=== PATIENT | male | born 1980 | race Caucasian/White ===

== ENCOUNTER 2016-05-06 18:19 | Emergency (ER) | payer MEDICAID, OTHER ==
[~2016-05-06] VITALS: Ht 185.4 cm; Wt 69.5 kg
[~2016-05-06 18:19] MED LIST: AMI25 PO; BENZ1LOZ52 MM; CEPH-443 PO; CYCL-319 PO; HYDR-3498 PO; HYDR-762 PO; IBUP-1542 PO; IBUP400T22 PO; NORC 5-325 PO; ORPH100T PO; PHEN177S43 MT
[2016-05-06 18:44] VITALS: Ht 185.4 cm; Wt 69.5 kg
[2016-05-06] MEDS ORDERED: CLINDAMYCIN 600 MG/D5W (PMX) 50 ML IVPB SCH (21:00)
[2016-05-06] MEDS ORDERED: CLINDAMYCIN 300 MG INJ IV ONE (21:00)
[2016-05-06] MEDS ORDERED: SOD CHLORIDE 0.9% 1,000 ML IV ONE (21:00)
[2016-05-06] MEDS ORDERED: morphine 10 MG INJ IV ONE (21:00)
[2016-05-06] MEDS ORDERED: ONDANSETRON 4 MG INJ IV STA (21:07)
[2016-05-06 21:18] LABS: ADD SCAN DIFF NO
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
[2016-05-06 21:23] LABS: BASOPHILS % 0.2 % (0.0-2.0); EOSINOPHILS # 0.2 10^3/ul (0.0-0.5); EOSINOPHILS % 2.3 % (0.0-7.0); HEMATOCRIT 37.9 % (42.0-52.0); HEMOGLOBIN 12.4 g/dl (14.0-18.0); LYMPHOCYTES # 1.4 10^3/ul (0.8-2.9); LYMPHOCYTES % 14.6 % (15.0-51.0); MEAN CORPUSCULAR HEMOGLOBIN 27.9 pg (29.0-33.0); MEAN CORPUSCULAR HGB CONC 32.7 g/dl (32.0-37.0); MEAN CORPUSCULAR VOLUME 85.4 fl (82.0-101.0); MONOCYTE # 1.1 10^3/ul (0.3-0.9); MONOCYTES % 11.2 % (0.0-11.0); NEUTROPHIL # 6.9 10^3/ul (1.6-7.5); NEUTROPHILS % 71.5 % (39.0-77.0); PLATELET COUNT 197 10^3/UL (140-415); RED BLOOD COUNT 4.44 10^6/ul (4.70-6.10); RED CELL DISTRIBUTION WIDTH 13.5 % (11.5-14.5); WHITE BLOOD COUNT 9.6 10^3/ul (4.8-10.8)
[2016-05-06 21:33] LABS: POTASSIUM 3.9 mmol/L (3.5-5.1)
[2016-05-06 21:35] LABS: CREATININE 0.72 mg/dl (0.61-1.24)
[2016-05-06 21:36] LABS: ALBUMIN/GLOBULIN RATIO 1.17; BILIRUBIN,INDIRECT 0.5 mg/dl (0-1.1); BILIRUBIN,TOTAL 0.5 mg/dl (0.2-1.3); CALCIUM 8.9 mg/dl (8.4-10.2); TOTAL PROTEIN 7.4 g/dl (6.1-8.1)
[2016-05-06] MEDS ORDERED: morphine 2 MG INJ IV ONE (22:30)
[2016-05-06] MEDS ORDERED: IOHEXOL 300MG/ML 150 ML BTL ONE (22:34)
[2016-05-06] MEDS ORDERED: SOD CHLORIDE 0.9% 100 ML ONE (22:34)
[2016-05-06] MEDS ORDERED: KETOROLAC 60 MG INJ IM STA (23:22)
[2016-05-06] MEDS ORDERED: KETOROLAC 30 MG INJ IV STA (23:32)
[2016-05-06 23:47] VITALS: BP 125/66; PULSE 70; RESP 18; TEMP 98.5
--- NOTE | 2016-05-06 23:49 | RADRPT ---
PROCEDURE: CT Facial with contrast. CLINICAL INDICATION: Dental abscess. Pain. TECHNIQUE: CT scan of the facial region was performed on a multidetector scanner. Contiguous axia l images were obtained following the uncomplicated intravenous administration of 90 cc of Omnipaque- 300. No complications occurred. The exam CTDlvol = 60 mGy and DLP = 1221 mGy-cm. One of the [employer] wing 3 dose reduction techniques were used: Automated exposure control; adjustment of the mA and/or kV according to patient size; or use of iterative reconstruction technique. COMPARISON: None available. FINDINGS: There is extensive right facial and perimandibular subcutaneous soft tissue swelling and infiltratio n, consistent with a severe cellulitis. There is no focal ring enhancing collection to suggest a fo rmed abscess. There are no bony erosions to suggest osteomyelitis. There is advanced dental diseas e including prominent caries of multiple bilateral posterior mandibular and maxillary molars. There is resorption along the roots of the posterior molars greatest involving the left luis mandible. T here is mucosal thickening of the right maxillary sinus. There are no air-fluid levels. Orbital co ntents are unremarkable. The globes and intra orbital contents are intact. There is no infiltratio n or mass within the intraorbital fat are retroconal space. Extraocular muscles and optic nerve she ath complex are unremarkable. The parotid and submandibular glands unremarkable. The nasal and yannick pharynx are unremarkable. Bones are otherwise unremarkable. IMPRESSION: 1. Extensive right facial and perimandibular soft tissue swelling infiltration compatible with a ce llulitis. 2. No focal abscess within the right facial air. Mandibular region. 3. Bilateral posterior molar teres and resorption at the roots greatest on the posterior left avinash ble. A. Doubtful abscess cannot be excluded. 4. Right maxillary sinus mucosal thickening. RPTAT: [facility]VK .Imer Chatman MD, MD Date Time Electronically viewed and signed by .Imer Chatman MD, on 05/06/2016 23:49 .K/
[2016-05-07] MEDS ORDERED: CLIN-73 PO (00:19)
[2016-05-07] MEDS ORDERED: HYDR-906 PO (00:19)
== END 2016-05-07 01:12 | disposition home or self-care (01) ==
LOC: FTE 18:19
DX: L03.211 Cellulitis of face (principal); F17.210 Nicotine dependence, cigarettes, uncomplicated
CPT/HCPCS: 36415; 70486; 80053; 85025; 96374; 96375; 96376; J1885; J2270; J2405; J7030; Q9967; Z7502; Z7610

== ENCOUNTER 2016-07-12 23:35 | Emergency (ER) | payer OTHER ==
[~2016-07-12] VITALS: Ht 185.4 cm; Wt 69.0 kg
[~2016-07-12 23:35] MED LIST changes: +CLIN-73 PO; +HYDR-906 PO
[2016-07-12 23:55] VITALS: Ht 185.4 cm; Wt 69.0 kg
[2016-07-13] MEDS ORDERED: HYDROCODONE/APAP (5/325) TAB PO STA (01:15)
--- NOTE | 2016-07-13 02:26 | RADRPT ---
PROCEDURE: X-ray right ankle. CLINICAL INDICATION: Injury to the dorsal aspect of the right ankle. TECHNIQUE: 3 views right ankle. COMPARISON: None FINDINGS: Mild soft tissue swelling over the dorsal and medial aspects of the right ankle, without tibiotalar joint effusion. No acute fracture or dislocation. Remaining soft tissues are unremarkable. IMPRESSION: No acute fracture. RPTAT: [facility] Physician Kimberly Date Time Electronically viewed and signed by Physician Kimberly on 07/13/2016 02:26 RS/
[2016-07-13] MEDS ORDERED: IBUP-1542 PO (02:42)
[2016-07-13 03:06] VITALS: BP 128/71; PULSE 87; RESP 20; TEMP 98.8
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
== END 2016-07-13 03:06 | disposition home or self-care (01) ==
LOC: FTE 23:35
DX: S99.911A Unspecified injury of right ankle, initial encounter (principal); W22.8XXA Striking against or struck by other objects, initial encounter; Y92.9 Unspecified place or not applicable; Z87.891 Personal history of nicotine dependence
CPT/HCPCS: 73610; Z7610; 99283

== ENCOUNTER 2018-09-14 14:42 | Emergency (ER) | payer OTHER ==
[~2018-09-14] VITALS: Ht 185.4 cm; Wt 74.5 kg
[~2018-09-14 14:42] MED LIST changes: -CLIN-73 PO; +CLIN300C10 PO; -CYCL-319 PO; +CYCL10TA7 PO; +HYDR-4011 PO; -HYDR-906 PO; +IBUP-1541 PO; -IBUP400T22 PO; +SULF1TAB31 PO
[2018-09-14 15:04] VITALS: BP 137/84; PULSE 90; RESP 18; Ht 185.4 cm; Wt 74.5 kg
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
[2018-09-14] MEDS ORDERED: IBUPROFEN 600 MG TAB PO ONE (17:00)
[2018-09-14] MEDS ORDERED: IBUP-1542 PO (18:26)
== END 2018-09-14 19:24 | disposition home or self-care (01) ==
LOC: FTE 14:42
DX: M54.5 Low back pain (principal); F17.210 Nicotine dependence, cigarettes, uncomplicated
CPT/HCPCS: 72100; 73030; Z7502; Z7610